=== PATIENT | male | born 1940 | race Caucasian/White ===

== ENCOUNTER → 2024-05-17 | Outpatient (BNVA) | payer MEDICARE, MEDICAID, SELFPAY | END | disposition home or self-care (01) | PROVIDERS: PCP Internal Medicine; Referring Provider Internal Medicine; Visit Provider Urology | DX: N40.1 Benign prostatic hyperplasia with lower urinary tract symptoms (principal); N13.8 Other obstructive and reflux uropathy; Z96.659 Presence of unspecified artificial knee joint; Z46.6 Encounter for fitting and adjustment of urinary device; E66.9 Obesity, unspecified; Z68.29 Body mass index [BMI] 29.0-29.9, adult | CPT/HCPCS: 96372; 99212; J1580; G0463 ==